=== PATIENT | male | born 1965 | race African-American/Black ===

== ENCOUNTER 2021-12-29 06:12 | Inpatient (IN) | payer SELFPAY ==
[2021-12-29 07:57] VITALS: BMI 28.7
[2021-12-29] MEDS ORDERED: MORPHINE 4 MG/ML SYR IV PRN (09:29)
[2021-12-29] MEDS ORDERED: ACETAMINOPHEN 500 MG TAB PO PRN (09:29)
[2021-12-29 12:40] LABS: Absolute Lymphocytes (CBC) 1.3 K/uL (0.7-4.9); Hematocrit 49.9 % (39.6-49.0); Lymphocytes % 23.7 % (15.3-44.8); MCV 83.2 fL (80-100); MPV 7.9 fL (7.6-11.3)
[2021-12-29 12:56] LABS: Potassium 3.8 mmol/L (3.5-5.1)
[2021-12-29 13:03] LABS: Troponin High Sensitivity 387.7 pg/mL (<58.9)
--- NOTE | 2021-12-29 14:03 | ECHO ---
HEIGHT: 5 ft 10 in WEIGHT: 200 lb 0 oz DATE OF STUDY: 12/29/[address]: Annie Castle MD 2-DIMENSIONAL: YES M.MODE: YES DOPPLER: YES COLOR FLOW: YES TDS: NO PORTABLE: YES DEFINITY: NO BUBBLE STUDY: NO DIAGNOSIS: NSTEMI CARDIAC HISTORY: CATHERIZATION: SURGERY: PROSTHETIC VALVE: PACEMAKER: MEASUREMENTS (cm) DIASTOLIC (NORMALS) SYSTOLIC (NORMALS) IVSd 1.1 (0.6-1.2) LA Diam 5.1 (1.9-4.0) LVEF 10-15% LVIDd 6.7 (3.5-5.7) LVIDs 5.9 (2.0-3.5) %FS 12% LVPWd 1.3 (0.6-1.2) Ao Diam 3.3 (2.0-3.7) 2 DIMENSIONAL ASSESSMENT: RIGHT ATRIUM: NORMAL LEFT ATRIUM: SEVERELY ENLARGED RIGHT VENTRICLE: NORMAL LEFT VENTRICLE: SEVERELY DILATED TRICUSPID VALVE: NORMAL MITRAL VALVE: NORMAL PULMONIC VALVE: NORMAL AORTIC VALVE: NORMAL PERICARDIAL EFFUSION: NONE AORTIC ROOT: NORMAL LEFT VENTRICULAR WALL MOTION: SEVERE GLOBAL HYPOKINESIS WITH ANTERIOR WALL AKINESIS. DOPPLER/COLOR FLOW: MILD MITRAL REGURGITATION, MILD AORTIC INSUFFICIENCY. COMMENTS: SEVERELY DEPRESSED LEFT VENTRICULAR EJECTION FRACTION 10-15%. SEVERE GLOBAL HYPOKINESIS WITH ANTERIOR WALL AKINESIS. MILD MITRAL REGURGITATION, MILD AORTIC INSUFFICIENCY. SEVERELY DILATED LEFT VENTRICLE. LEFT ATRIAL ENLARGEMENT. SEVERE DIASTOLIC DYSFUNCTION. TECHNOLOGIST: ARRON CORTEZ
--- NOTE | 2021-12-29 15:11 | P.HP ---
Certification for Inpatient Patient admitted to: Inpatient With expected LOS: >2 Midnights Patient will require the following post-hospital care: None Practitioner: I am a practitioner with admitting privileges, knowledge of patient current condition, hospital course, and medical plan of care. Services: Services provided to patient in accordance with Admission requirements found in Title 42 Section 412.3 of the Code of Federal Regulations Patient History Date of Service: 12/29/21 Reason for admission: Chest pain rule out acute coronary syndrome History of Present Illness: Patient is a 56-year-old gentleman who came to the hospital with chest discomfort. Patient was admitted to [facility] for evaluation. Patient's troponins came back elevated and they made arrangements to transfer patient to our facility. Patient was admitted to our hospital. his intellectual property legal assistant is Dr. Caputo. Patient has cardiomyopathy with an ejection fraction of 30% per his memory. He states he had a cardiac catheterization which did not reveal any blockages. He most likely has nonischemic cardiomyopathy. Patient will be admitted to the hospital for further work-up. Allergies No Known Allergies Allergy (Unverified 12/29/21 07:58) Home Medications: Furosemide 40 mg PO DAILY 6PM 05/10/17 Spironolactone 25 mg PO DAILY 05/10/17 carvediloL [Carvedilol] 25 mg PO BID 05/10/17 Amlodipine Besylate [Norvasc] 5 mg PO DAILY 12/29/21 Dapagliflozin Propanediol [Farxiga] 5 mg PO DAILY 12/29/21 Digoxin [Lanoxin*] 0.125 mg PO DAILY 12/29/21 Furosemide 80 mg PO DAILY 12/29/21 Hydralazine [Apresoline*] 25 mg PO BID 12/29/21 Insulin NPH Hum/Reg Insulin Hm [Novolin 70-30 100 Unit/ml Vial] See Protocol SQ TIDWM 12/29/21 Losartan Potassium [Cozaar] 100 mg PO DAILY 12/29/21 Warfarin Sodium 10 mg PO ,W,F 12/29/21 Warfarin Sodium [Coumadin*] 4 mg PO T,TH,S 12/29/21 - Past Medical/Surgical History Has patient received pneumonia vaccine in the past: Yes Diabetic: Yes -: DM -: HTN -: CVA 2019 -: CHF -: GOUT -: ROCIO -: APPENDECTOMY -: CARDIAC CATH - Family History Father Medical History: Heart disease, Diabetes, Cancer Notes: lung cancer Mother Medical History: Hypertension Sister Medical History: Hypertension, Diabetes - Social History Smoking Status: Never smoker Alcohol use: Yes CD- Drugs: No Caffeine use: No Place of Residence: Home Review of Systems 10-point ROS is otherwise unremarkable Physical Examination - Vital Signs Temperature: 97.7 F Blood Pressure: 135/94 Pulse: 69 Respirations: 18 Pulse Ox (%): 100 - Physical Exam General: Alert, In no apparent distress, Oriented x3 HEENT: Atraumatic, PERRLA, Mucous membr. moist/pink, EOMI, Sclerae nonicteric Neck: Supple, 2+ carotid pulse no bruit, No LAD, Without JVD or thyroid abnormality Respiratory: Clear to auscultation bilaterally, Normal air movement Cardiovascular: Regular rate/rhythm, Normal S1 S2 Gastrointestinal: Normal bowel sounds, No tenderness Musculoskeletal: No tenderness Integumentary: No rashes Neurological: Normal gait, Normal speech, Normal strength at 5/5 x4 extr, Normal tone, Normal affect Lymphatics: No axilla or inguinal lymphadenopathy - Studies Laboratory Data (last 24 hrs) 12/29/21 12:18: Sodium 138, Potassium 3.8, BUN 24 H, Creatinine 1.61 H, Glucose 163 H 12/29/21 12:18: WBC 5.6, Hgb 16.5, Hct 49.9 H, Plt Count 275 12/29/21 12:18: Triglycerides 67, Cholesterol 195, HDL Cholesterol 60, Cholesterol/HDL Ratio 3.25 Assessment & Plan - Problems (Diagnosis) (1) Chest pain, rule out acute myocardial infarction Current Visit: Yes Status: Acute (2) Systolic congestive heart failure Current Visit: Yes Status: Chronic Qualifiers: Heart failure chronicity: chronic Qualified Code(s): I50.22 - Chronic systolic (congestive) heart failure (3) Cardiomyopathy Current Visit: No Status: Chronic Qualifiers: (4) Chronic anticoagulation Current Visit: No Status: Chronic (5) Hyperlipidemia Current Visit: No Status: Chronic Qualifiers: (6) Hypertension Current Visit: No Status: Chronic - Plan -High-sensitivity troponin -Cardiology consultation -Echocardiogram -Repeat EKG -Work-up for other etiologies of cardiac chest pain if troponins remain negative -Lipid profile -Snuff Packing Machine Operator regarding modifying risk for cardiac disease Discharge Plan: Home Plan to discharge in: Greater than 2 days - Advance Directives Does patient have a Living Will: No Does patient have a Durable POA for Healthcare: No - Code Status/Comfort Care Code Status Assessed: Yes Code Status: Full Code Critical Care: No Time Spent Managing PTS Care (In Minutes): 50
[2021-12-29] MEDS ORDERED: WARFARIN SODIUM 4 MG TAB PO SCH ×2 (17:00)
[2021-12-29 17:29] LABS: Protime INR 6.3
[2021-12-29] MEDS ORDERED: FUROSEMIDE 40 MG TABLET PO SCH (18:00)
[2021-12-29] MEDS ORDERED: GLUCAGON 1 MG/VIAL IM PRN (20:43)
[2021-12-29] MEDS ORDERED: D50W 25 GM/50 ML SYRINGE IV PRN (20:43)
[2021-12-29] MEDS ORDERED: D10W 125 ML IV PRN (20:47)
[2021-12-29] MEDS ORDERED: METOPROLOL TAR 25 MG TAB PO SCH (21:00)
[2021-12-29] MEDS: HYDRALAZINE HCL 25 MG TABLET PO SCH (21:21)
[2021-12-29] MEDS: carvediloL 25 MG TAB PO SCH (21:21)
[2021-12-29] MEDS: INSULIN -REGULAR HUMAN 50 UNIT/0.5 ML ML SQ SCH (21:23)
[2021-12-30 04:44] LABS: Absolute Lymphocytes (CBC) 1.7 K/uL (0.7-4.9); Hematocrit 45.5 % (39.6-49.0); Lymphocytes % 27.9 % (15.3-44.8); MCV 82.3 fL (80-100); MPV 7.7 fL (7.6-11.3); RBC Red Blood Cell Count 5.53 M/uL (4.33-5.43)
[2021-12-30 04:57] LABS: Potassium 3.2 mmol/L (3.5-5.1)
[2021-12-30] MEDS: INSULIN -REGULAR HUMAN 50 UNIT/0.5 ML ML SQ SCH ×3 (07:30→16:30)
[2021-12-30] MEDS ORDERED: LOSARTAN POTASSIUM 50 MG TABLET PO SCH (09:00)
[2021-12-30] MEDS ORDERED: ENOXAPARIN 40 MG/0.4 ML SQ SCH (09:00)
[2021-12-30] MEDS ORDERED: FUROSEMIDE 40 MG TABLET PO SCH (09:00)
[2021-12-30] MEDS ORDERED: HOME MED 1 EA UNK (Dapagliflozin Propanediol [Farxiga] 5 MG Tablet) PO SCH (09:00)
[2021-12-30] MEDS ORDERED: lisinopriL 10 MG TAB PO SCH (09:00)
[2021-12-30] MEDS ORDERED: ASPIRIN EC 81 MG TAB PO SCH (09:00)
[2021-12-30] MEDS ORDERED: AMLODIPINE 5 MG TAB PO SCH (09:00)
[2021-12-30] MEDS ORDERED: SPIRONOLACTONE 25 MG TABLET PO SCH (09:00)
[2021-12-30] MEDS ORDERED: DIGOXIN 0.125 MG TABLET PO SCH (09:00)
[2021-12-30] MEDS: HYDRALAZINE HCL 25 MG TABLET PO SCH (09:01)
[2021-12-30] MEDS: carvediloL 25 MG TAB PO SCH (09:01)
[2021-12-30 10:44] LABS: Protime INR 5.87
[2021-12-30 16:18] VITALS: BP 123/88; TEMP 97.8
[2021-12-30] MEDS ORDERED: WARFARIN SODIUM 5 MG TAB PO SCH (17:00)
[2021-12-31] MEDS ORDERED: HOME MED 1 EA UNK (Dapagliflozin Propanediol [Farxiga] 5 MG Tablet) PO SCH (09:00)
[2021-12-31] MEDS ORDERED: Dapagliflozin Propanediol [Farxiga] 10 MG Tablet PO SCH (09:00)
--- NOTE | 2022-01-01 00:01 | P.DS ---
Discharge Date: 12/30/21 Disposition: ROUTINE DISCHARGE Discharge Condition: GOOD Reason for Admission: Chest pain rule out acute coronary syndrome - Problems (1) Chest pain, rule out acute myocardial infarction Status: Acute (2) Systolic congestive heart failure Status: Chronic Qualifiers: Heart failure chronicity: chronic Qualified Code(s): I50.22 - Chronic systolic (congestive) heart failure (3) Cardiomyopathy Status: Chronic Qualifiers: (4) Chronic anticoagulation Status: Chronic (5) Hyperlipidemia Status: Chronic Qualifiers: (6) Hypertension Status: Chronic Brief History of Present Illness: Patient is a 56-year-old gentleman who came to the hospital with chest discomfort. Patient was admitted to [facility] for evaluation. Patient's troponins came back elevated and they made arrangements to transfer patient to our facility. Patient was admitted to our hospital. his park services specialist is Dr. Caputo. Patient has cardiomyopathy with an ejection fraction of 30% per his memory. He states he had a cardiac catheterization which did not reveal any blockages. He most likely has nonischemic cardiomyopathy. Patient will be admitted to the hospital for further work-up. Hospital Course: Patient clinically doing well at this time. Patient's clinical symptoms are improved. Patient's INR is supratherapeutic and I have asked him not to take any Coumadin until Sunday. He needs to take his INR rechecked on Sunday. At this time, patient is stable for discharge home. Vital Signs/Physical Exam: Temp Pulse Resp BP Pulse Ox 97.8 F 68 18 123/88 98 12/30/21 16:00 12/30/21 16:00 12/30/21 16:00 12/30/21 16:00 12/30/21 16:00 General: Alert, In no apparent distress, Oriented x3 Laboratory Data at Discharge: WBC 6.1 K/uL (4.3-10.9) 12/30/21 04:15 Hgb 15.4 g/dL (13.6-17.9) 12/30/21 04:15 Hct 45.5 % (39.6-49.0) 12/30/21 04:15 Plt Count 269 K/uL (152-406) 12/30/21 04:15 PT 67.0 SECONDS (9.5-12.5) H 12/30/21 07:48 INR 5.87 H* 12/30/21 07:48 Sodium 140 mmol/L (136-145) 12/30/21 04:15 Potassium 3.2 mmol/L (3.5-5.1) L 12/30/21 04:15 BUN 21 mg/dL (7-18) H 12/30/21 04:15 Creatinine 1.48 mg/dL (0.55-1.3) H 12/30/21 04:15 Glucose 130 mg/dL (74-106) H 12/30/21 04:15 Triglycerides 67 mg/dL (<150) 12/29/21 12:18 Cholesterol 195 mg/dL (<200) 12/29/21 12:18 HDL Cholesterol 60 mg/dL (40-60) 12/29/21 12:18 Cholesterol/HDL Ratio 3.25 12/29/21 12:18 Home Medications: Furosemide 40 mg PO DAILY 6PM 05/10/17 Spironolactone 25 mg PO DAILY 05/10/17 carvediloL [Carvedilol] 25 mg PO BID 05/10/17 Amlodipine Besylate [Norvasc] 5 mg PO DAILY 12/29/21 Dapagliflozin Propanediol [Farxiga] 5 mg PO DAILY 12/29/21 Digoxin [Lanoxin*] 0.125 mg PO DAILY 12/29/21 Furosemide 80 mg PO DAILY 12/29/21 Hydralazine [Apresoline*] 25 mg PO BID 12/29/21 Insulin NPH Hum/Reg Insulin Hm [Novolin 70-30 100 Unit/ml Vial] See Protocol SQ TIDWM 12/29/21 Losartan Potassium [Cozaar] 100 mg PO DAILY 12/29/21 Warfarin Sodium [Coumadin*] 4 mg PO T,TH,S 12/29/21 Warfarin Sodium [Coumadin*] 5 mg PO DAILY #30 tab 12/30/21 New Medications: Warfarin Sodium [Coumadin*] 5 mg PO DAILY #30 tab Physician Discharge Instructions: OK TO DC IV AND DC HOME FOLLOW-UP WITH PRIMARY CARE PROVIDER IN 1-2 WEEKS FOLLOW-UP WITH CARDIOLOGY IN 1-2 WEEKS RETURN TO THE ER IF symptoms worsen Hold Coumadin until Sunday; get INR rechecked on Sunday and if INR <3.0 resume Coumadin at 5mg daily CALL DR. WHALEY AT [phone] IF ANY QUESTIONS REGARDING HOSPITAL STAY. PLEASE CALL THE FLOOR AT [phone] IF ANY MEDICATION OR NURSING QUESTIONS. Diet: Low sodium Activity: Fall precautions Time spent managing pt's care (in minutes): 35
--- NOTE | 2022-01-01 00:55 | CON ---
Date of Consultation: 12/30/2021 Reason For Consultation: [id number] systolic congestive heart failure exacerbation. History Of Present Illness: Mr. Emmanuel was transferred from [facility] to us after he was admitt ed there for CHF. He has a history of atrial fibrillation for which he takes digoxin and Coumadin. He has a history of hypertension, severe systolic congestive heart failure as well as diabetes. He h ad gone to [facility] because of chest discomfort. He is known to have a catheterization recent ly by Dr. Caputo and was normal. His ejection fraction has been at the 30%. When he came in to the ospital here, he was basically asymptomatic after some low-dose IV Lasix diuresis. He right now seth es any chest pain, nausea, vomiting, diaphoresis, PND, orthopnea, pedal edema, palpitations, or synco pe. Past Medical History: As stated above. Allergies: NONE. Review of Systems: Negative. Social History: Negative. Family History: Negative. Medications: At home include Lasix 40 daily, Aldactone 25 mg daily, carvedilol 25 mg b.i.d., amlodip ine 5 daily, and Farxiga 5 mg daily. He is on digoxin. He is on Coumadin. He is on Lasix 80 mg guy ly with hydralazine, insulin, and losartan. Physical Examination: Vital Signs: When I saw him, his vital signs were stable. He was afebrile. HEENT: Negative. Neck: Supple. No bruit. Chest: Clear to auscultation and percussion. Cardiac: Regular rhythm and rate. No murmurs, gallops, or rubs. Abdomen: Benign. Extremities: No clubbing, cyanosis, or edema. Diagnostic Data: His glucose was 205. Echocardiogram showed an ejection fraction of 15%. Creatinin e was 1.61. His INR was 6.30. The troponin was 366. Impression And Plan: [id number] systolic congestive heart failure. I think the patient is a c andidate for Entresto and possibly a defibrillator, but he will follow up with Dr. Caputo in the near future to discuss these options. Otherwise, I think his elevated troponin is secondary to chronic co ngestive heart failure and demand ischemia and as this is not an acute coronary syndrome and he has h ad a normal heart catheterization recently. His diabetes is fairly well controlled. His blood press ure is fairly well controlled. He is on Coumadin and he needs to hold his Coumadin for about 2 days and restart at a lower dose and follow up with Dr. Caputo as well as possible because his INR was very elevated. Otherwise, as far as I am concerned, he can go home and continue his present regimen exce pt for holding the Coumadin for a day or 2. Follow up with Dr. Caputo in the near future. Case was d iscussed with Dr. Castle. KENNETH/GERI Voice ID: [id number] Report ID: [id number]
== END 2021-12-30 18:18 | disposition home or self-care (01) | DRG 291 ==
LOC: 4TH 07:51
PROVIDERS: ADMIT Hospitalist; ATTEND Hospitalist
DX: I11.0 Hypertensive heart disease with heart failure (principal); I50.23 Acute on chronic systolic (congestive) heart failure; I24.8 Other forms of acute ischemic heart disease; I48.91 Unspecified atrial fibrillation; E11.9 Type 2 diabetes mellitus without complications; E78.5 Hyperlipidemia, unspecified; M10.9 Gout, unspecified; G47.33 Obstructive sleep apnea (adult) (pediatric); Z79.01 Long term (current) use of anticoagulants; Z86.73 Personal history of transient ischemic attack (TIA), and cerebral infarction without residual deficits
CPT/HCPCS: 36415; 80048; 80061; 82947; 84484; 85025; 85610; 93306; J1650; J1815